=== PATIENT | female | born 1990 | race Two or more races ===

== ENCOUNTER 2017-12-16 19:38 | Emergency (ER) | payer SELFPAY ==
[~2017-12-16] VITALS: Ht 157.5 cm; Wt 79.4 kg
[~2017-12-16 19:38] MED LIST: CYCLOBENZAPRINE10 MG ORAL; IBUPROFEN600 MG ORAL; KEFLEX500 MG ORAL; NITROFURANTOIN100 M2 ORAL; NKM
--- NOTE | 2017-12-16 19:54 | Emergency Room Report ---
History of Present Illness General Chief Complaint: Hypertension Source: Patient Present Illness HPI 27-year-old female with no medical problems presents with concern for high blood pressure, shortness of blood pressure 141/71 when she checked in a pharmacy. She reports that for the last 2 days she's had insomnia, and she is tried Advil PM without much relief, she reports she also had a sensation of chest distress of breath. She denies any leg pain leg swelling cough hemoptysis , syncope, recent travel, and does not take oral contrast pills or any medications. He also feels that she's been stressed out and thinks that may be why she can't sleep but otherwise is not sure why she can't sleep. Allergies: Coded Allergies: No Known Allergies (Unverified , 09/12/12) Patient History Past Medical History: see triage record Reviewed Nursing Documentation: PMH: Agreed; PSxH: Agreed Review of Systems All Other Systems: negative except mentioned in HPI Physical Exam Sp02 EP Interpretation: reviewed, normal General Appearance: no apparent distress, alert, non-toxic Head: normocephalic Eyes: bilateral eye normal inspection, bilateral eye PERRL, bilateral eye EOMI ENT: normal ENT inspection, hearing grossly normal, normal pharynx, no angioedema, normal voice, moist mucus membranes Neck: normal inspection, full range of motion, supple, supple/symm/no masses Respiratory: chest non-tender, lungs clear, normal breath sounds, chest symmetrical, palpation of chest normal Cardiovascular #1: normal peripheral pulses, regular rate, rhythm Cardiovascular #2: 2+ radial (R), 2+ radial (L), 2+ dorsalis pedis (R), 2+ dorsalis pedis (L) Gastrointestinal: normal inspection, non tender, soft, no mass, no guarding, no rebound Rectal: deferred Genitourinary: normal inspection, no CVA tenderness Musculoskeletal: back normal, gait/station normal, normal range of motion, non- tender, no calf tenderness, Fariba's Sign negative Neurologic: alert, responsive, student support services director III-XII nml as tested, motor strength/tone normal, sensory intact, speech normal Psychiatric: judgement/insight normal, memory normal, mood/affect normal, anxious Skin: normal color, no rash, warm/dry, normal turgor Lymphatic: no adenopathy JUAREZ MARTINEZ M.D Dec 16, 2017 19:54
[2017-12-16] MEDS ORDERED: LORazepam 1mg tab ORAL ONE (20:00)
[2017-12-16 20:20] LABS: BASOPHILS % (AUTO) 0.7 % (0.0-2.0); EOSINOPHILS % (AUTO) 0.7 % (0.0-3.0); HEMATOCRIT 40.6 % (37.0-47.0); HEMOGLOBIN 14.6 G/DL (12.0-16.0); LYMPHOCYTES % (AUTO) 28.5 % (20.0-45.0); MEAN CORPUSCULAR VOLUME 85 FL (80-99); MONOCYTES % (AUTO) 5.7 % (1.0-10.0); NEUTROPHILS % (AUTO) 64.5 % (45.0-75.0); PLATELET COUNT 226 K/UL (150-450); RED BLOOD COUNT 4.81 M/UL (4.20-5.40); RED CELL DISTRIBUTION WIDTH 11.1 % (11.6-14.8); WHITE BLOOD COUNT 9.7 K/UL (4.8-10.8)
[2017-12-16 20:23] VITALS: BP 122/66
[2017-12-16 20:32] LABS: ANION GAP 9 mmol/L (5-15); BLOOD UREA NITROGEN 23 mg/dL (7-18); CARBON DIOXIDE 27 MMOL/L (21-32); CHLORIDE 101 MMOL/L (98-107); CREATININE 0.9 MG/DL (0.55-1.30); POTASSIUM 3.6 MMOL/L (3.5-5.1); SODIUM 137 MMOL/L (136-145)
[2017-12-16 20:44] LABS: ALANINE AMINOTRANSFERASE 48 U/L (12-78); ALBUMIN 4.1 G/DL (3.4-5.0); ALBUMIN/GLOBULIN RATIO 0.9 (1.0-2.7); ALKALINE PHOSPHATASE 42 U/L (46-116); ASPARTATE AMINO TRANSFERASE 32 U/L (15-37); BILIRUBIN,TOTAL 0.3 MG/DL (0.2-1.0)
[2017-12-16] MEDS ORDERED: AMBIEN5 MG ORAL (21:24)
[2017-12-16 22:45] VITALS: BP 126/73
--- NOTE | 2017-12-17 09:11 | Diagnostic Imaging Report ---
Indication: Chest pain Technique: One view of the chest Comparison: none Findings: Lungs and pleural spaces are clear. Heart size is normal Impression: No acute process
--- NOTE | 2017-12-17 14:16 | Cardiology Report ---
APPROVED REPORT EKG Measurement Heart [id number] Sinus tachycardia Possible Left atrial enlargement Borderline ECG
== END 2017-12-16 21:30 | disposition home or self-care (01) ==
LOC: EMR 20:19
DX: G47.09 Other insomnia (principal); R03.0 Elevated blood-pressure reading, without diagnosis of hypertension; R07.9 Chest pain, unspecified; F41.8 Other specified anxiety disorders
CPT/HCPCS: 36415; 71045; 80053; 84443; 84484; 85025; 93005; 99284

== ENCOUNTER 2018-09-05 10:03 | Emergency (ER) | payer MEDICAID ==
[~2018-09-05] VITALS: Ht 157.5 cm; Wt 90.7 kg
[~2018-09-05 10:03] MED LIST changes: +AMBIEN5 MG ORAL
[2018-09-05 10:15] VITALS: BP 149/83
--- NOTE | 2018-09-05 10:15 | NUR ---
ED Nurse Note: pt walked in to ED due to headache and poor quality of sleep for last 1 week. pt also c/o epigastric pain for 3 days. pt seen by PCP 2 days ago. blood test done. follow up with pcp within 2 weeks. pt unable to tolerated the headache. no recent head injury reported. AAO x4. respirations even and non-labored noted. will wait for the further order.
[2018-09-05] MEDS ORDERED: Ketorolac 30mg Inj IV ONE (10:30)
--- NOTE | 2018-09-05 11:13 | NUR ---
ED Nurse Note: Patient returned from CT scan. Per patient, patient has no chance of at this time.
[2018-09-05 11:14] LABS: APPEARANCE,URINE CLEAR; BILIRUBIN, URINE NEGATIVE (NEGATIVE); COLOR,URINE PALE YELLOW; GLUCOSE, URINE (UA) NEGATIVE (NEGATIVE); KETONES,URINE NEGATIVE (NEGATIVE); LEUKOCYTE ESTERASE ,URINE NEGATIVE (NEGATIVE); NITRITE,URINE NEGATIVE (NEGATIVE); PH,URINE 7 (4.5-8.0); PROTEIN,URINE NEGATIVE (NEGATIVE); UROBILINOGEN,URINE NORMAL MG/DL (0.0-1.0)
[2018-09-05 11:17] LABS: BASOPHILS % (AUTO) 1.1 % (0.0-2.0); EOSINOPHILS % (AUTO) 0.5 % (0.0-3.0); HEMATOCRIT 39.8 % (37.0-47.0); HEMOGLOBIN 13.9 G/DL (12.0-16.0); LYMPHOCYTES % (AUTO) 32.3 % (20.0-45.0); MEAN CORPUSCULAR VOLUME 84 FL (80-99); MONOCYTES % (AUTO) 6.9 % (1.0-10.0); NEUTROPHILS % (AUTO) 59.2 % (45.0-75.0); PLATELET COUNT 274 K/UL (150-450); RED BLOOD COUNT 4.74 M/UL (4.20-5.40)
[2018-09-05 11:22] LABS: ANION GAP 6 mmol/L (5-15); BLOOD UREA NITROGEN 11 mg/dL (7-18); CALCIUM 9.7 MG/DL (8.5-10.1); CARBON DIOXIDE 31 MMOL/L (21-32); CHLORIDE 104 MMOL/L (98-107); CREATININE 0.7 MG/DL (0.55-1.30); POTASSIUM 3.8 MMOL/L (3.5-5.1); SODIUM 140 MMOL/L (136-145)
[2018-09-05 11:35] LABS: ALANINE AMINOTRANSFERASE 53 U/L (12-78); ALBUMIN 3.9 G/DL (3.4-5.0); ALKALINE PHOSPHATASE 34 U/L (46-116); ASPARTATE AMINO TRANSFERASE 24 U/L (15-37); BILIRUBIN,TOTAL 0.3 MG/DL (0.2-1.0)
[2018-09-05] MEDS ORDERED: IBUPROFEN600 MG ORAL (11:49)
[2018-09-05] MEDS ORDERED: XANAX0.5 MG ORAL (11:49)
[2018-09-05 12:30] VITALS: BP 111/69
--- NOTE | 2018-09-05 12:32 | NUR ---
ER DISCHARGE NOTE: Patient is cleared to be discharged per ERMD, pt is aox4, on room air, with stable vital signs. pt was given dc and prescription instructions, pt was able to verbalize understanding, pt id band and iv site removed without complications. pt is able to ambulate with steady gait. pt took all belongings.
--- NOTE | 2018-09-05 13:45 | Emergency Room Report ---
History of Present Illness General Chief Complaint: Headache Source: Patient, Medical Record Present Illness HPI Patient has a history of anxiety. Patient presents emergency department today complaining of feeling anxious having difficulty sleeping and having a headache over the last few days. Patient states that she has 6 children and she works full-time so she is very stressed in the last week for life stresses. She denies any fever chest pain shortness of breath. No other complaints were noted other than feeling anxious and having a headache. She complains of nausea. Denies any vomiting. Denies any diarrhea. Patient denies any suicidal homicidal ideation. No auditory or visual hallucinations. Patient states that she is ever had a work-up is fairly worried about any other underlying medical problems. No other modifying factors. No other associated signs and symptoms. No other complaints were noted. Patient states that this is not her typical headache. She states that this is different and she is under a lot of stress. Usually she gets a headache and it goes away but this once lasted for quite some time. Allergies: Coded Allergies: No Known Allergies (Unverified , 09/12/12) Patient History Past Medical History: other - Anxiety Past Surgical History: none Pertinent Family History: none Social History: Denies: smoking, alcohol use, drug use Last Menstrual Period: 08/31/18 Reviewed Nursing Documentation: PMH: Agreed; PSxH: Agreed Nursing Documentation-PMH Past Medical History: No History, Except For Review of Systems All Other Systems: negative except mentioned in HPI Physical Exam Vital Signs Date Time Temp Pulse Resp B/P (MAP) Pulse Ox O2 Delivery O2 Flow Rate FiO2 09/05/18 10:12 97.9 84 16 149/83 (105) 99 Room Air Sp02 EP Interpretation: reviewed, normal General Appearance: alert, mild distress - Appears anxious Head: atraumatic Eyes: bilateral eye normal inspection ENT: normal ENT inspection, hearing grossly normal, normal voice Neck: normal inspection, full range of motion, supple, no bony tend Respiratory: normal inspection, lungs clear, normal breath sounds, no respiratory distress, no retraction, no wheezing Cardiovascular #1: regular rate, rhythm, no edema Gastrointestinal: normal inspection, normal bowel sounds, non tender, soft, no guarding, no hernia Genitourinary: no CVA tenderness Musculoskeletal: normal inspection, back normal, normal range of motion Neurologic: normal inspection, alert, responsive, speech normal Psychiatric: normal inspection, judgement/insight normal, mood/affect normal Skin: normal inspection, normal color, no rash Medical Decision Making Diagnostic Impression: Primary Impression: Anxiety Additional Impressions: Insomnia Stress reaction ER Course Patient presents emergency department today complaint anxiety insomnia and severe headache. Differential considerations include stress reaction, intracranial injury, electrolyte abnormality just to name a few. Given the severity of the patient's presentation I felt this is a highly complex patient. This patient required extensive workup. Patient's laboratory work-up was negative. Head CT was also negative. Head CT was performed because of severity patient's headache and the persistence of her headache. This was not a thunderclap headache. Therefore LP was not indicated. Patient was given some pain medication with significant improvement symptoms. Patient was advised to follow-up as an outpatient. Patient is advised to follow up with primary doctor in 2-3 days and return the emergency room for any worsening symptoms and as needed. Labs Test 09/05/18 10:35 White Blood Count 6.0 K/UL (4.8-10.8) Red Blood Count 4.74 M/UL (4.20-5.40) Hemoglobin 13.9 G/DL (12.0-16.0) Hematocrit 39.8 % (37.0-47.0) Mean Corpuscular Volume 84 FL (80-99) Mean Corpuscular Hemoglobin 29.4 PG (27.0-31.0) Mean Corpuscular Hemoglobin Concent 35.0 G/DL (32.0-36.0) Red Cell Distribution Width 11.0 % (11.6-14.8) Platelet Count 274 K/UL (150-450) Mean Platelet Volume 6.6 FL (6.5-10.1) Neutrophils (%) (Auto) 59.2 % (45.0-75.0) Lymphocytes (%) (Auto) 32.3 % (20.0-45.0) Monocytes (%) (Auto) 6.9 % (1.0-10.0) Eosinophils (%) (Auto) 0.5 % (0.0-3.0) Basophils (%) (Auto) 1.1 % (0.0-2.0) Urine Color Pale yellow Urine Appearance Clear Urine pH 7 (4.5-8.0) Urine Specific [place] 1.010 (1.005-1.035) Urine Protein Negative (NEGATIVE) Urine Glucose (UA) Negative (NEGATIVE) Urine Ketones Negative (NEGATIVE) Urine Blood 2+ (NEGATIVE) Urine Nitrite Negative (NEGATIVE) Urine Bilirubin Negative (NEGATIVE) Urine Urobilinogen Normal MG/DL (0.0-1.0) Urine Leukocyte Esterase Negative (NEGATIVE) Urine RBC 2-4 /HPF (0 - 2) Urine WBC 0-2 /HPF (0 - 2) Urine Squamous Epithelial Cells Moderate /LPF (NONE/OCC) Urine Bacteria Few /HPF (NONE) Urine HCG, Qualitative Negative (NEGATIVE) Sodium Level 140 MMOL/L (136-145) Potassium Level 3.8 MMOL/L (3.5-5.1) Chloride Level 104 MMOL/L (98-107) Carbon Dioxide Level 31 MMOL/L (21-32) Anion Gap 6 mmol/L (5-15) Blood Urea Nitrogen 11 mg/dL (7-18) Creatinine 0.7 MG/DL (0.55-1.30) Estimat Glomerular Filtration Rate > 60 mL/min (>60) Glucose Level 103 MG/DL (74-106) Calcium Level 9.7 MG/DL (8.5-10.1) Total Bilirubin 0.3 MG/DL (0.2-1.0) Aspartate Amino Transf (AST/SGOT) 24 U/L (15-37) Alanine Aminotransferase (ALT/SGPT) 53 U/L (12-78) Alkaline Phosphatase 34 U/L (46-116) Total Protein 7.8 G/DL (6.4-8.2) Albumin 3.9 G/DL (3.4-5.0) Globulin 3.9 g/dL Albumin/Globulin Ratio 1.0 (1.0-2.7) Lipase 102 U/L (73-393) CT/MRI/US Diagnostic Results CT/MRI/US Diagnostic Results : Imaging Test Ordered: Head CT: Negative Last Vital Signs Date Time Temp Pulse Resp B/P (MAP) Pulse Ox O2 Delivery O2 Flow Rate FiO2 09/05/18 12:30 98.6 70 16 111/69 97 Room Air Disposition: HOME, SELF-CARE Condition: Stable Scripts Ibuprofen* (MOTRIN*) 600 Mg Tablet 600 MG ORAL Q8H PRN for For Pain, #20 TAB 0 Refills Prov: Norman Barragan MD 09/05/18 Alprazolam* (XANAX*) 0.5 Mg Tablet 0.5 MG ORAL TID PRN for PRN Agitation/Anxiety, #10 TAB 0 Refills Prov: Norman Barragan MD 09/05/18 Referrals: NON PHYSICIAN (PCP) Departure Forms: Return to Work Return to Work Date: Sep 09, 2018 Patient Instructions: Tension Headache, Stress and Stress Management Norman Barragan MD Sep 05, 2018 13:45
--- NOTE | 2018-09-05 17:47 | Diagnostic Imaging Report ---
Indications: Headache Technique: Spiral acquisitions obtained through the brain. Angled axial and coronal 5 x 5 mm slices were reconstructed. Total dose length product 1326.82 mGycm. CTDI vol(s) 70.38 mGy. Dose reduction achieved using automated exposure control Comparison: None. Findings: No acute intracranial hemorrhage or edema, mass effect, nor midline shift. Intact calvarium. Visualized orbits and sinuses are unremarkable. Normal villa-white differentiation. Normal-sized ventricles and extra axial CSF spaces. Intact calvarium. Impression: Negative The CT scanner at [facility] is accredited by the [employer] and the scans are performed using protocols designed to limit radiation exposure to as low as reasonably achievable to attain images of sufficient resolution adequate for diagnostic evaluation.
== END 2018-09-05 12:33 | disposition home or self-care (01) ==
LOC: EMR 10:46
DX: F41.9 Anxiety disorder, unspecified (principal); G47.00 Insomnia, unspecified; F43.9 Reaction to severe stress, unspecified; R51 Headache
CPT/HCPCS: 36415; 70450; 80053; 81003; 81025; 83690; 85025; 96361; 96374; 96375; 99284; J1885; J2405

== ENCOUNTER 2018-09-07 20:56 | Emergency (ER) | payer MEDICAID ==
[~2018-09-07] VITALS: Ht 157.5 cm; Wt 90.7 kg
[~2018-09-07 20:56] MED LIST changes: +XANAX0.5 MG ORAL
[2018-09-07 21:30] VITALS: BP 129/85
[2018-09-07] MEDS ORDERED: LORazepam 1mg tab ORAL ONE (21:30)
[2018-09-07] MEDS ORDERED: ATIVAN1 MG ORAL (21:34)
--- NOTE | 2018-09-07 21:35 | Emergency Room Report ---
History of Present Illness General Chief Complaint: Abdominal Pain Source: Patient Present Illness HPI this is a 28 yo female with no pmh who presents with c/o feeling anxious. felt n /v. no diarrhea. has headache and abd cramps. was here 3 days ago for same. labs and ct head neg. no relief with IB. this has been ongoing for about a week. Allergies: Coded Allergies: No Known Allergies (Unverified , 09/12/12) Patient History Past Medical History: see triage record, old chart reviewed Past Surgical History: none Pertinent Family History: none Social History: Denies: smoking Last Menstrual Period: 08/31/18 Now: No Immunizations: other Reviewed Nursing Documentation: PMH: Agreed; PSxH: Agreed Nursing Documentation-PMH Past Medical History: No Stated History Review of Systems Eye: Denies: eye pain, blurred vision ENT: Denies: ear pain, nose congestion, throat swelling Respiratory: Reports: shortness of breath; Denies: cough Cardiovascular: Denies: chest pain, palpitations Gastrointestinal: Reports: abdominal pain, nausea; Denies: diarrhea, vomiting Musculoskeletal: Denies: back pain, joint pain Skin: Denies: rash Neurological: Denies: headache, numbness Endocrine: Denies: increased thirst, increased urine Hematologic/Lymphatic: Denies: easy bruising All Other Systems: negative except mentioned in HPI Physical Exam Vital Signs Date Time Temp Pulse Resp B/P (MAP) Pulse Ox O2 Delivery O2 Flow Rate FiO2 09/07/18 21:06 98.2 91 13 136/87 (103) 97 Room Air vitals normal Sp02 EP Interpretation: reviewed, normal General Appearance: well appearing, no apparent distress, alert Head: normocephalic, atraumatic Eyes: bilateral eye PERRL, bilateral eye EOMI ENT: hearing grossly normal, normal pharynx Neck: full range of motion, supple, no meningismus Respiratory: chest non-tender, lungs clear, normal breath sounds Cardiovascular #1: regular rate, rhythm, no murmur Gastrointestinal: normal bowel sounds, non tender, no mass, no organomegaly, no bruit, non-distended Musculoskeletal: back normal, gait/station normal, normal range of motion Psychiatric: anxious Skin: warm/dry Medical Decision Making Diagnostic Impression: Primary Impression: Anxiety ER Course pt with anxiety. no e/o acute abd. no e/o bleed or meningitis. will dc home. Last Vital Signs Date Time Temp Pulse Resp B/P (MAP) Pulse Ox O2 Delivery O2 Flow Rate FiO2 09/07/18 21:06 98.2 91 13 136/87 (103) 97 Room Air Status: improved Disposition: HOME, SELF-CARE Condition: Stable Scripts Lorazepam* (ATIVAN*) 1 Mg Tablet 1 MG ORAL THREE TIMES A DAY for anxiety, #20 TAB Prov: Liam Pagan MD 09/07/18 Referrals: NOT CHOSEN IPA/,REFERRING (PCP) Additional Instructions: Follow up with your doctor in a week. You may benefit from a referral to see a psychologist or a psychiatrist. Liam Pagan MD Sep 07, 2018 21:35
--- NOTE | 2018-09-07 21:40 | NUR ---
ED Nurse Note: pt walked in c/o abd pain epigastric x 2 days with nausea and vomiting, pt reports she has been having diarrhea as well. pt AA&xo4, gcs=15, skin warm and dry, resp even and unlabored on Ra, -n/v/d at this time, vss, ambulates w/ steady gait.
--- NOTE | 2018-09-07 21:43 | NUR ---
ED Nurse Note: pt cleared to be d/c per ERMD, pt discharge and aftercare instruction provided w/ prescription, pt education done via discussion and handout, pt advised to follow up with pcp or return to ed if changes in condition, vss, ambulatory w/ steady gait, left w/ all belongings.
[2018-09-07 21:46] VITALS: BP 125/76
== END 2018-09-07 21:46 | disposition home or self-care (01) ==
LOC: EMR 21:16
DX: F41.9 Anxiety disorder, unspecified (principal)
CPT/HCPCS: 99282